=== PATIENT | male | born 1965 | race Caucasian/White ===

== ENCOUNTER → 2019-01-26 | Emergency (ER) | payer BC ==
[~2019-01-26] VITALS: Ht 167.6 cm; Wt 94.9 kg
[~2019-01-26] MED LIST: ALBU2TAB5 PO; ASPI-535 PO; CARV12.579 PO; KETOROLAC 15 MG INJ IV STA; LEVO500T48 PO; LISI1TAB4 PO; METF-849 PO; SIMV20TA20 PO; TAMS0.4C2 PO
[2019-01-26 19:02] VITALS: Ht 167.6 cm; Wt 94.9 kg
--- NOTE | 2019-01-26 20:31 | ERD ---
ER Documentation Chief Complaint Chief Complaint L groin pain x 2 days w/ hematuria HPI 53-year-old male presenting with left groin pain radiating to the left testicle for the past 2 days. Although the triage note states that he has hematuria, he is denying any hematuria or dysuria. He has had some chills. No associated abdominal pain. No nausea, vomiting, diarrhea, or constipation. He has a history of prostatitis and takes prostate medications. He is monogamous with his only. He denies any associated penile discharge. ROS All systems reviewed and are negative except as per history of present illness. Medications Home Meds Active Scripts Levofloxacin* (Levaquin*) 500 Mg Tablet, 500 MG PO DAILY for 10 Days, TAB Prov:GUZMAN CARDENAS MD 01/26/19 Reported Medications Tamsulosin Hcl* (Tamsulosin Hcl*) 0.4 Mg Cap.er.24h, 0.4 MG PO HS, CAP 01/26/19 Aspirin Ec (Aspir 81) 81 Mg Tablet.dr, 81 MG PO DAILY, #30 TAB 01/26/19 Carvedilol* (Carvedilol*) 12.5 Mg Tablet, 12.5 MG PO BID for 30 Days, #60 01/26/19 Albuterol Sulfate* (Albuterol Sulfate*) 2 Mg Tablet, 2 MG PO PRN for SHORTNESS OF BREATH 01/26/19 Lisinopril/Hydrochlorothiazide (Lisinopril-Hctz 10-12.5 mg Tab) 1 Each Tablet, 1 TAB PO QAM for 30 Days, #30 01/26/19 Simvastatin (Simvastatin) 20 Mg Tablet, 20 MG PO QAM for 30 Days, #30 01/26/19 Metformin* (Glucophage*) 500 Mg Tab, 500 MG PO QAM for 30 Days, #30 01/26/19 Allergies Allergies: Coded Allergies: No Known Allergy (Unverified , 01/26/19) PMhx/Soc Medical and Surgical Hx: pt denies Medical Hx, pt denies Surgical Hx History of Surgery: No Anesthesia Reaction: No Hx Neurological Disorder: No Hx Respiratory Disorders: No Hx Cardiac Disorders: No Hx Psychiatric Problems: No Hx Miscellaneous Medical Probl: No Hx Alcohol Use: Yes Hx Substance Use: No Hx Tobacco Use: No Smoking Status: Never smoker FmHx Family History: No diabetes Physical Exam Vitals Vital Signs Date Temp Pulse Resp B/P (MAP) Pulse Ox O2 O2 Flow FiO2 Time Delivery Rate 01/26/19 98.5 104 18 139/94 98 Room Air 19:20 (109) 01/26/19 100.2 110 18 141/90 96 19:02 (107) Physical Exam Const: No acute distress Head: Atraumatic Eyes: Normal Conjunctiva ENT: Normal External Ears, Nose and Mouth. Neck: Full range of motion. No meningismus. Resp: Clear to auscultation bilaterally Cardio: Regular rate and rhythm, no murmurs Abd: Soft, non tender, non distended. Normal bowel sounds : Scrotum and penis appear normal. Left testicular and epididymal tenderness to palpation. No masses palpated. Right testicle nontender to palpation Skin: No petechiae or rashes Back: No midline or flank tenderness Ext: No cyanosis, or edema Neur: Awake and alert Psych: Normal Mood and Affect Result Diagram: 01/26/19200101/26/192001 Results 24 hrs Laboratory Tests Test 01/26/19 20:02 White Blood Count 11.5 10^3/ul Red Blood Count 4.87 10^6/ul Hemoglobin 14.5 g/dl Hematocrit 43.0 % Mean Corpuscular Volume 88.3 fl Mean Corpuscular Hemoglobin 29.8 pg Mean Corpuscular Hemoglobin Concent 33.7 g/dl Red Cell Distribution Width 13.2 % Platelet Count 339 10^3/UL Mean Platelet Volume 10.1 fl Immature Granulocytes % 0.500 % Neutrophils % 69.6 % Lymphocytes % 21.4 % Monocytes % 7.9 % Eosinophils % 0.2 % Basophils % 0.4 % Nucleated Red Blood Cells % 0.0 /100WBC Immature Granulocytes # 0.060 10^3/ul Neutrophils # 8.0 10^3/ul Lymphocytes # 2.5 10^3/ul Monocytes # 0.9 10^3/ul Eosinophils # 0.0 10^3/ul Basophils # 0.1 10^3/ul Nucleated Red Blood Cells # 0.0 10^3/ul Urine Color YELLOW Urine Clarity CLEAR Urine pH 5.0 Urine Specific [place] 1.030 Urine Ketones TRACE mg/dL Urine Nitrite NEGATIVE mg/dL Urine Bilirubin NEGATIVE mg/dL Urine Urobilinogen 1+ mg/dL Urine Leukocyte Esterase NEGATIVE Brent/ul Urine Microscopic RBC 5 /HPF Urine Microscopic WBC 13 /HPF Urine Mucus MODERATE /HPF Urine Hemoglobin 1+ mg/dL Urine Glucose NEGATIVE mg/dL Urine Total Protein NEGATIVE mg/dl Sodium Level 139 mmol/L Potassium Level 3.7 mmol/L Chloride Level 102 mmol/L Carbon Dioxide Level 27 mmol/L Anion Gap 10 Blood Urea Nitrogen 19 mg/dl Creatinine 0.77 mg/dl Est Glomerular Filtrat Rate mL/min > 60 mL/min Glucose Level 130 mg/dl Calcium Level 9.4 mg/dl Current Medications Medications Dose Sig/Sal Start Time Status Last (Trade) Ordered Route PRN Stop Time Admin Dose Reason Admin Ketorolac 15 mg ONCE STAT 01/26/19 DC 01/26/19 Tromethamine IV 19:40 20:11 (Toradol) 01/26/19 19:42 Procedures/MDM EMERGENT LABS AND DIAGNOSTIC STUDIES: Lab Results above were reviewed and interpreted by me. CBC: no anemia or evidence of infection BMP: no e/o clinically significant electrolyte abnormality severe acidosis, alkalosis, renal failure, diabetic ketoacidosis UA: 13 WBCs, possibly consistent with infection Radiology Results as interpreted by Radiology below were reviewed by Teri Cardenas MD: Ultrasound testicles shows evidence of a left varicocele with evidence of epididymitis and mild orchitis Initial Nursing notes reviewed. Previous Medical Records requested via the Electronic Health Record. EMERGENCY DEPARTMENT COURSE / MEDICAL DECISION MAKING: Patient is presenting with left testicular pain for 2 days with exam concerning for orchitis versus epididymitis. Ultrasound confirmed epididymitis with mild orchitis. Labs not show any other significant abnormalities. Do not suspect severe sepsis or septic shock. Patient will be started on Levaquin for 10 days. Return precautions given. Follow-up with PCP recommended at the end of antibiotic course. Patient's blood pressure was elevated (>120/80) but appears stable without evidence of hypertensive emergency or urgency. The patient was counseled about the risks of hypertension and urged to pursue outpatient monitoring and therapy within a week with their primary care physician. Departure Diagnosis: Primary Impression: Epididymitis, left Condition: Stable GUZMAN CARDENAS MD Jan 26, 2019 20:31
[2019-01-26 22:22] VITALS: BP 124/83; PULSE 92; RESP 18
== END | disposition home or self-care (01) ==
LOC: E/R 18:40
DX: N45.1 Epididymitis (principal)
CPT/HCPCS: 36415; 76870; 80048; 81001; 85025; 87086; 96374; 99285; J1885